=== PATIENT | male | born 1945 | race Two or more races ===

== ENCOUNTER 2016-08-12 10:20 | Outpatient (CLI) | payer MEDICARE, BC | END 2016-08-12 23:59 | disposition home or self-care (01) | LOC: WOU 10:20 | PROVIDERS: ATTEND Podiatrist Foot & Ankle Surgery | DX: E11.621 Type 2 diabetes mellitus with foot ulcer (principal); E11.622 Type 2 diabetes mellitus with other skin ulcer; E11.42 Type 2 diabetes mellitus with diabetic polyneuropathy; L97.524 Non-pressure chronic ulcer of other part of left foot with necrosis of bone; L97.324 Non-pressure chronic ulcer of left ankle with necrosis of bone; L97.313 Non-pressure chronic ulcer of right ankle with necrosis of muscle; L97.413 Non-pressure chronic ulcer of right heel and midfoot with necrosis of muscle; T87.81 Dehiscence of amputation stump; Z89.411 Acquired absence of right great toe; E11.22 Type 2 diabetes mellitus with diabetic chronic kidney disease; I12.0 Hypertensive chronic kidney disease with stage 5 chronic kidney disease or end stage renal disease; N18.6 End stage renal disease; Z99.2 Dependence on renal dialysis; I25.10 Atherosclerotic heart disease of native coronary artery without angina pectoris; Z95.1 Presence of aortocoronary bypass graft; E11.52 Type 2 diabetes mellitus with diabetic peripheral angiopathy with gangrene | CPT/HCPCS: 11043; 11044; 11046; 73610 ×2; 73630; 87070; 87075; A6402 ==

== ENCOUNTER 2016-08-17 09:05 | Outpatient (CLI) | payer MEDICARE, BC | END 2016-08-17 23:59 | disposition home or self-care (01) | LOC: WOU 09:05 | PROVIDERS: ATTEND Surgery Vascular Surgery | DX: I70.245 Atherosclerosis of native arteries of left leg with ulceration of other part of foot (principal); L97.324 Non-pressure chronic ulcer of left ankle with necrosis of bone; I70.234 Atherosclerosis of native arteries of right leg with ulceration of heel and midfoot; L97.413 Non-pressure chronic ulcer of right heel and midfoot with necrosis of muscle; L97.524 Non-pressure chronic ulcer of other part of left foot with necrosis of bone; E11.621 Type 2 diabetes mellitus with foot ulcer; E11.622 Type 2 diabetes mellitus with other skin ulcer; E11.42 Type 2 diabetes mellitus with diabetic polyneuropathy; E11.51 Type 2 diabetes mellitus with diabetic peripheral angiopathy without gangrene; E11.22 Type 2 diabetes mellitus with diabetic chronic kidney disease; N18.6 End stage renal disease; Z99.2 Dependence on renal dialysis; Z88.6 Allergy status to analgesic agent; Z88.1 Allergy status to other antibiotic agents; Z88.0 Allergy status to penicillin; I70.233 Atherosclerosis of native arteries of right leg with ulceration of ankle | CPT/HCPCS: 93970-TC; A6402; G0463 ==

== ENCOUNTER 2016-08-17 13:40 | Outpatient (CLI) | payer MEDICARE, BC | END 2016-08-17 23:59 | disposition home or self-care (01) | LOC: VASLAB 13:40 | PROVIDERS: ATTEND Surgery Vascular Surgery | DX: Z75.3 Unavailability and inaccessibility of health-care facilities (principal) | CPT/HCPCS: A6402; G0463 ==

== ENCOUNTER 2016-08-23 09:37 | Outpatient (CLI) | payer MEDICARE, BC ==
[2016-08-24] MEDS ORDERED: SEVE0.8P PO (13:23)
[2016-08-24] MEDS ORDERED: ZOLP10TA2 PO (13:23)
[2016-08-24] MEDS ORDERED: ALPR0.25 PO (13:23)
[2016-08-24] MEDS ORDERED: AMIO200T2 PO (13:23)
[2016-08-24] MEDS ORDERED: FLUO20CA36 PO (13:23)
[2016-08-29] MEDS ORDERED: VANC1PLA9 IV (13:00)
== END 2016-08-23 23:59 | disposition home or self-care (01) ==
LOC: WOU 09:37
PROVIDERS: ATTEND Podiatrist Foot & Ankle Surgery
DX: E11.621 Type 2 diabetes mellitus with foot ulcer (principal); E11.622 Type 2 diabetes mellitus with other skin ulcer; L97.313 Non-pressure chronic ulcer of right ankle with necrosis of muscle; E11.42 Type 2 diabetes mellitus with diabetic polyneuropathy; E11.51 Type 2 diabetes mellitus with diabetic peripheral angiopathy without gangrene; I70.245 Atherosclerosis of native arteries of left leg with ulceration of other part of foot; I70.243 Atherosclerosis of native arteries of left leg with ulceration of ankle; L97.524 Non-pressure chronic ulcer of other part of left foot with necrosis of bone; I25.10 Atherosclerotic heart disease of native coronary artery without angina pectoris; Z95.1 Presence of aortocoronary bypass graft; Z89.412 Acquired absence of left great toe; E11.22 Type 2 diabetes mellitus with diabetic chronic kidney disease; I12.0 Hypertensive chronic kidney disease with stage 5 chronic kidney disease or end stage renal disease; N18.6 End stage renal disease; Z99.2 Dependence on renal dialysis; Z79.899 Other long term (current) drug therapy; Z88.6 Allergy status to analgesic agent; Z88.1 Allergy status to other antibiotic agents; Z88.0 Allergy status to penicillin; Z88.2 Allergy status to sulfonamides
CPT/HCPCS: 11043; 11044; 11046; A6402 ×2

== ENCOUNTER 2016-08-24 11:38 | Inpatient (IN) | payer MEDICARE, BC ==
[~2016-08-24] VITALS: Ht 165.1 cm; Wt 70.8 kg
--- NOTE | 2016-08-24 12:10 | NUR ---
BIB SELF, CC: REFERRED BY DR. DOWELL FOR SURGICAL PROCEDURE. WITH DRESSINGS ON BLE. VSS. AAOX3. SEEN BY MD FOR EVAL. SAFETY AND COMFORT MEASURES PROVIDED. WILL MONITOR.
--- NOTE | 2016-08-24 12:40 | NUR ---
IV ACCESS STARTED, BLOOD DRAWN FOR LABS.
--- NOTE | 2016-08-24 12:49 | NUR ---
MANUELA PAGED, HARMEET LIU BAIL ATTACHER
--- NOTE | 2016-08-24 12:51 | NUR ---
CALLED NURSING SUP. FOR MS BED
[2016-08-24 13:09] LABS: CALCIUM, SERUM 9.4 mg/dL (8.5-10.1); CREATININE 4.7 mg/dL (0.6-1.3); POTASSIUM 4.1 mmol/L (3.5-5.1)
--- NOTE | 2016-08-24 13:13 | NUR ---
[facility] REPAGED
[2016-08-24 13:15] LABS: ALBUMIN 3.1 g/dL (3.4-5.0); BILIRUBIN,TOTAL 0.8 mg/dL (0.2-1.0); TOTAL PROTEIN, SERUM 7.1 g/dL (6.4-8.2)
[2016-08-24] MEDS ORDERED: SEVE0.8P PO (13:23)
[2016-08-24] MEDS ORDERED: AMIO200T2 PO (13:23)
[2016-08-24] MEDS ORDERED: ZOLP10TA2 PO (13:23)
[2016-08-24] MEDS ORDERED: FLUO20CA36 PO (13:23)
[2016-08-24] MEDS ORDERED: ALPR0.25 PO (13:23)
--- NOTE | 2016-08-24 13:44 | NUR ---
TEXTED DR. RUIZ FOR MRI APPROVAL.
--- NOTE | 2016-08-24 14:35 | NUR ---
REPORT GIVEN TO ANDRE LOGAN FOR MS ROOM 312-1.
[2016-08-24 14:38] LABS: HEMATOCRIT 42 % (39-51); HEMOGLOBIN 13.3 g/dL (13.5-17.5); LYMPHOCYTES % (AUTO) 4.1 % (20.0-44.0); MEAN CORPUSCULAR HEMOGLOBIN 28 PG (26.0-33.0); MEAN CORPUSCULAR HGB CONC 32 g/dl (31.0-36.0); MEAN CORPUSCULAR VOLUME 88 fL (80-96); NEUTROPHILS % (AUTO) 83.6 % (43.0-81.0); PLATELET COUNT (AUTO) 107 /CMM (150-450); RED BLOOD CELL COUNT(AUTO) 4.82 MIL/uL (4.5-6.0); WHITE BLOOD COUNT (AUTO) 7.6 K/uL (4.3-11.0)
[2016-08-24 14:39] LABS: BASOPHILS # (AUTO) 0.1 /CMM (0.0-0.2); BASOPHILS % (AUTO) 1.9 % (0.0-2.0); EOSINOPHILS # (AUTO) 0.2 /CMM (0.0-0.7); LYMPHOCYTES # (AUTO) 0.3 /CMM (0.8-4.8); MONOCYTES # (AUTO) 0.6 /CMM (0.1-1.30); MONOCYTES % (AUTO) 7.4 % (2.0-12.0); NEUTROPHILS # (AUTO) 6.4 /CMM (1.8-8.9)
[2016-08-24 15:30] VITALS: BP 105/69
--- NOTE | 2016-08-24 15:30 | NUR ---
RN NOTES PATIENT RECEIVED FROM ER ARRIVED VIA WHEELCHAIR, AWAKE ALERT AND VERBALLY RESPONSIVE, ABLE TO MAKE NEEDS KNOWN. RESPIRATIONS EVEN AND UNLABORED, REPORT PAIN LEVEL OF 3/10 TOLERABLE LEVEL, WILL CONTINUE TO MONITOR. DR. LIU AWARE OF PT'S ARRIVAL WILL CONTINUE ALL ADMISSION ORDERS. PT ORIENTED TO ROOM AND UNIT, CALL LIGHT PLACED WITHIN REACH, SIDE RAILS UP X2 WILL CONTINUE TO MONITOR
[2016-08-24] MEDS ORDERED: IV NS 0.9% 1,000 ML IV PRN (15:51)
[2016-08-24 16:00] VITALS: BP 105/69
[2016-08-24] MEDS ORDERED: ACETAMINOPHEN 325 MG TABLET PO PRN (16:00)
[2016-08-24] MEDS ORDERED: ALPRAZOLAM 0.5 MG TABLET PO PRN (16:00)
[2016-08-24] MEDS ORDERED: ZOLPIDEM TARTRATE 10 MG TABLET PO PRN (16:00)
[2016-08-24] MEDS ORDERED: ALPRAZOLAM 0.5 MG TABLET PO ONE (16:00)
[2016-08-24] MEDS ORDERED: Z GUARD REMEDY 2 OZ OINT TP PRN (16:00)
[2016-08-24] MEDS ORDERED: ONDANSETRON HCL/PF 4 MG/2 ML VIAL IVP PRN (16:00)
--- NOTE | 2016-08-24 17:03 | NUR ---
PATEINT HAS PROSTHETIC AORTIC VALVULAR IMPLANT NOT SURE IF IT IS MRI COMPATIBLE ,NURSE JONH IS AWARE.
[2016-08-24] MEDS: SEVELAMER CARBONATE 0.8 GM POWD.PACK PO SCH (17:14)
[2016-08-24] MEDS ORDERED: FEE PK DOSING 1 MIN EA MC ONE (17:46)
[2016-08-24] MEDS ORDERED: VANCOMYCIN 500 MG in IV D5W 100 ML IV PRN (18:00)
[2016-08-24] MEDS: CADEXOMER IODINE 40 GM TUBE TP SCH (18:00)
[2016-08-24] MEDS ORDERED: VANCOMYCIN 1 GM in IV D5W 250 ML IV ONE (18:00)
[2016-08-24] MEDS ORDERED: SECONDARY IV SET 1 EA INFUS.SET MC ONE (18:49)
[2016-08-24] MEDS ORDERED: IV SET PRIMARY PUMP SET 1 EA INFUS.SET MC ONE (18:49)
[2016-08-24] MEDS ORDERED: IV NS 0.9% 250 ML IV ONE (18:49)
--- NOTE | 2016-08-24 19:37 | NUR ---
RN NOTES PT AWAKE ALERT AND VERBALLY RESPONSIVE, ABLE TO MAKE NEEDS KNOWN. RESPIRATIONS EVEN AND UNLABORED, REPORT PAIN LEVEL OF 3/10 TOLERABLE LEVEL, PT REFUSED BODY CHECK AND PICTURES OF WOUND X3 NURSING EDUCATION REINFORCED, WANTS IT TO BE CHANGED LATER, WORKING FOREMAN RN AWARE. PT ORIENTED TO ROOM AND UNIT, CALL LIGHT PLACED WITHIN REACH, SIDE RAILS UP X2, ENDORSED TO NEXT SHIFT FOR CONTINUITY OF CARE, WORKING FOREMAN RN WILL ADMINISTER IODOSORB.
--- NOTE | 2016-08-24 19:44 | NUR ---
RN NOTES PATIENT IS AWAKE ALERT AND VERBALLY RESPONSIVE IN THE WHEELCHAIR, ABLE TO MAKE NEEDS KNOWN. RESPIRATIONS EVEN AND UNLABORED.NO COMPLAINTS OF PAIN AT THIS TIME. PER DR. BABCOCK, WILL TAKE PICTURES OF WOUNDS AND DRESS PER ORDERS AND GET CONSENT FORMS SIGNED FOR DEBRIDEMENT. PT ORIENTED TO ROOM AND UNIT, CALL LIGHT PLACED WITHIN REACH, SIDE RAILS UP X2. WILL CONTINUE TO MONITOR
[2016-08-24 20:00] VITALS: BP 106/53
--- NOTE | 2016-08-24 22:00 | NUR ---
CONSENT CONSENT FOR BILATERAL WOUND DEBRIDEMENT WAS OBTAINED AND FILED IN THE CHART.
--- NOTE | 2016-08-24 23:00 | NUR ---
WOUND CARE PICTURES OF WOUNDS ON BOTH LOWER EXTREMITIES WERE TAKEN AND PUT IN CHART. BOTH LOWER EXTREMITY WOUNDS WERE CLEANED, IODOSORB WAS APPLIED, MEPILEX AND KERLIX WERE USED TO COVER WOUNDS. WILL CONTINUE TO MONITOR
[2016-08-24] MEDS: HYDROCODONE/APAP 10/325MG 1 EA TABLET PO PRN (23:14)
[2016-08-25] MEDS: ALPRAZOLAM 0.25 MG TABLET PO PRN ×2 (04:29→12:43)
--- NOTE | 2016-08-25 06:18 | NUR ---
MS RN CLOSING NOTES PT AWAKE ALERT AND VERBALLY RESPONSIVE, ABLE TO MAKE NEEDS KNOWN. WOUND CARE, PICTURES, AND CONSENT WERE COMPLETED. PT ORIENTED TO ROOM AND UNIT, CALL LIGHT PLACED WITHIN REACH, SIDE RAILS UP X2. WILL ENDORSE TO DAY SHIFT TO FOLLOW UP WITH NEPHRO IN REGARDS TO HD.
[2016-08-25 07:28] LABS: BASOPHILS # (AUTO) 0.1 /CMM (0.0-0.2); BASOPHILS % (AUTO) 0.7 % (0.0-2.0); EOSINOPHILS # (AUTO) 0.7 /CMM (0.0-0.7); HEMATOCRIT 42 % (39-51); HEMOGLOBIN 13.6 g/dL (13.5-17.5); LYMPHOCYTES # (AUTO) 0.4 /CMM (0.8-4.8); LYMPHOCYTES % (AUTO) 5.4 % (20.0-44.0); MEAN CORPUSCULAR HEMOGLOBIN 28 PG (26.0-33.0); MEAN CORPUSCULAR HGB CONC 32 g/dl (31.0-36.0); MEAN CORPUSCULAR VOLUME 87 fL (80-96); MONOCYTES # (AUTO) 0.5 /CMM (0.1-1.30); MONOCYTES % (AUTO) 6.9 % (2.0-12.0); PLATELET COUNT (AUTO) 132 /CMM (150-450); RDW COEFFICIENT OF VARIATION 17.5 (11.5-15.0); RED BLOOD CELL COUNT(AUTO) 4.86 MIL/uL (4.5-6.0); WHITE BLOOD COUNT (AUTO) 7.6 K/uL (4.3-11.0)
[2016-08-25 07:35] LABS: ALBUMIN 2.9 g/dL (3.4-5.0); BILIRUBIN,TOTAL 0.8 mg/dL (0.2-1.0); CALCIUM, SERUM 9.7 mg/dL (8.5-10.1); CREATININE 5.5 mg/dL (0.6-1.3); MAGNESIUM 2.2 mg/dL (1.8-2.4); PHOSPHORUS 7.4 mg/dL (2.5-4.9); POTASSIUM 4.5 mmol/L (3.5-5.1); TOTAL PROTEIN, SERUM 6.8 g/dL (6.4-8.2)
--- NOTE | 2016-08-25 07:40 | NUR ---
RECEIVED PT. ALERT AND ORIENTED X4.
[2016-08-25 08:00] VITALS: BP 105/64
[2016-08-25 08:47] LABS: THYROID STIMULATING HORMONE 0.73 uIU/mL (0.358-3.74)
[2016-08-25] MEDS: PANTOPRAZOLE 40 MG TABLET.DR PO SCH (09:35)
[2016-08-25] MEDS: HYDROMORPHONE 1 MG/1 ML DISP.SYRIN IV PRN ×2 (09:35→20:34)
[2016-08-25] MEDS: AMIODARONE HCL 200 MG TABLET PO SCH (09:35)
[2016-08-25] MEDS: SEVELAMER CARBONATE 0.8 GM POWD.PACK PO SCH ×3 (09:35→19:09)
[2016-08-25] MEDS: FLUOXETINE HCL 20 MG CAPSULE PO SCH (09:36)
[2016-08-25] MEDS: CADEXOMER IODINE 40 GM TUBE TP SCH (09:36)
--- NOTE | 2016-08-25 11:30 | NUR ---
HARMEET LIU IN TO SEE PT.PT. REFUSING TO ANSWER MRI CHECKLIST QUESTIONS.WD. CARE TO AG. LOWER LEGS.
--- NOTE | 2016-08-25 14:00 | NUR ---
MED X 1 WITH DILAUDID INJ. FOR LT. EYE PAIN.
[2016-08-25 15:50] VITALS: BP 119/73
[2016-08-25] MEDS ORDERED: VANCOMYCIN 1 GM in IV D5W 250 ML IV ONE (16:00)
--- NOTE | 2016-08-25 16:00 | NUR ---
HAD DIALYSIS TODAY,FIRST HOOKER OFF GOT IN TO DISAGREEMENT WITH PT. AND LEFT. NEW HOOKER OFF ASSIGNED.
--- NOTE | 2016-08-25 18:45 | NUR ---
VANCO 1 GM GIVEN VANCO LEVEL THIS AM 13.0.
--- NOTE | 2016-08-25 19:30 | NUR ---
RN NOTES Receievd patient in bed, awake and alert, verbally responsive and able to make needs known. No apparent distress observed. Will continue to monitor.
--- NOTE | 2016-08-25 19:30 | NUR ---
RN NOTES Received patient in chair, awake and alert, no apparent distress. Patient eating his dinner, no c/o pain or discomfort at this time. at bedside. Will continue to monitor.
[2016-08-25 20:00] VITALS: BP 118/57
--- NOTE | 2016-08-25 20:44 | NUR ---
RN NOTES COMPLAINED OF BILATERAL FOOT PAIN- DILAUDID 1MG IV GIVEN ORDERED, V/S STABLE
[2016-08-26] VITALS (9 sets, daily range): BP systolic 93–118; BP diastolic 54–68
[2016-08-26] MEDS: ALPRAZOLAM 0.25 MG TABLET PO PRN ×2 (00:10→19:43)
--- NOTE | 2016-08-26 05:59 | NUR ---
RN CLOSING NOTES Patient sleeping comfortable, easily awakens with verbal and tactile stimuli. Able to respond when asked. patient aware of the procedure he will have later, verbalized understanding. Consent signed. Will continue to monitor.
[2016-08-26 06:39] LABS: INR 1.11 (0.87-1.13); PROTHROMBIN TIME 11.9 SECS (9.5-12.7)
[2016-08-26 07:05] LABS: CALCIUM, SERUM 9.6 mg/dL (8.5-10.1); CREATININE 4.8 mg/dL (0.6-1.3); POTASSIUM 4.7 mmol/L (3.5-5.1)
[2016-08-26] MEDS: PANTOPRAZOLE 40 MG TABLET.DR PO SCH (07:30)
--- NOTE | 2016-08-26 07:30 | NUR ---
RN MS NOTES PT AWAKE, ALERT AND ORIENTED, SITTING IN BED, DENIES PAIN, BREATHING PATTERN NORMAL, CALL LIGHT WITHIN REACH, PT FOR WOUND DEBRIDEMENT TODAY, PT INFORMED, PLAN OF CARE DISCUSSED, VERBALIZED UNDERSTANDING.
[2016-08-26] MEDS: SEVELAMER CARBONATE 0.8 GM POWD.PACK PO SCH ×3 (08:00→17:39)
[2016-08-26] MEDS: AMIODARONE HCL 200 MG TABLET PO SCH (09:00)
[2016-08-26] MEDS: FLUOXETINE HCL 20 MG CAPSULE PO SCH (09:00)
--- NOTE | 2016-08-26 12:40 | NUR ---
RN MS NOTES PT IN BED, AWAKE, ALERT AND ORIENTED, NO COMPPLAINT OF PAIN OR ANY DISCOMFORT, BREATHING PATTERN NORMAL, AWAITING WOUND DEBRIDEMENT, CALL LIGHT WITHIN REACH, NEEDS ATTENDED.
--- NOTE | 2016-08-26 13:05 | NUR ---
RN MS NOTES VITALS TAKEN AND RECORDED, NO COMPLAINT OF PAIN, RESPIRATIONS NORMAL, PICKED UP BY O.R. STAFF FOR SURGERY, IN STABLE CONDITION, ACCOMPANIED BY .
[2016-08-26] MEDS ORDERED: BUPIVACAINE 0.5 % PF 150 MG/30 ML VIAL ONE (13:54)
[2016-08-26] MEDS ORDERED: BUPIVACAINE MPF 0.5% W/EPI INJ 30 ML VIAL ONE (13:54)
[2016-08-26] MEDS ORDERED: FENTANYL PF 100MCG/2ML AMPUL ONE (13:58)
[2016-08-26] MEDS ORDERED: MIDAZOLAM HCL 2 MG/2ML VIAL ONE (13:59)
[2016-08-26] MEDS ORDERED: CLINDAMYCIN 900 MG/6 ML VIAL ONE (14:00)
--- NOTE | 2016-08-26 15:25 | NUR ---
RN MS NOTES PT BACK FROM SURGERY, AWAKE, ALERT, NO COMPLAINT OF PAIN, NOT IN DISTRESS, DRESSINGS NOTED AT BOTH LOWER EXTREMITIES, NO BLEEDING NOTED, VITAL SIGNS TAKEN AND RECORDED, POST OP ORDERS RECEIVED, NOTED AND CARRIED OUT, MONITORED VITAL SIGNS CLOSELY.
[2016-08-26] MEDS: CADEXOMER IODINE 40 GM TUBE TP SCH (15:56)
--- NOTE | 2016-08-26 18:30 | NUR ---
RN MS NOTES PT IN BED, AWAKE, ALERT AND ORIENTED, ABLE TO EAT DINNER, VITAL SIGNS STABLE, PM MEDS GIVEN ORDERED, ALL NEEDS ATTENDED.
--- NOTE | 2016-08-26 19:05 | NUR ---
RN NOTE RECEIVED REPORT. PT AAOX4, APPEARS ANXIOUS. NO C/O ANY PAIN OR DISCOMFORT AT THIS TIME. ON NC 2L. S/P DEBRIDEMENT - LEFT FOOT DRESSING INTACT WITH SMALL AMOUNT OF BLEEDING NOTED. WILL MONITOR. IV INTACT AND PATENT, CALL LIGHT IN REACH.
--- NOTE | 2016-08-27 04:30 | NUR ---
RN NOTE PO PRN DEENA REQUESTED AND ACCEPTED FOR PAIN IN L HEEL. WILL CHARLIE FOR EFFECTIVENESS.
[2016-08-27] MEDS: HYDROCODONE/APAP 10/325MG 1 EA TABLET PO PRN ×2 (04:33→14:21)
--- NOTE | 2016-08-27 06:52 | NUR ---
RN NOTE PT RESTING COMFORTABLY IN BED. PRN EFFECTIVE. NO C/O ANY PAIN OR DISCOMFORT AT THIS TIME. BREATHING NON-LABORED AND EVEN. DRESSINGS I/C/D. IV INTACT AND PATENT. CALL LIGHT IN REACH. WILL F/U WITH DAY SHIFT FOR TIGRE.
[2016-08-27 07:28] LABS: EOSINOPHILS # (AUTO) 0.5 /CMM (0.0-0.7); EOSINOPHILS % (AUTO) 7.5 % (0.0-6.0); HEMATOCRIT 44 % (39-51); HEMOGLOBIN 13.9 g/dL (13.5-17.5); LYMPHOCYTES # (AUTO) 0.4 /CMM (0.8-4.8); LYMPHOCYTES % (AUTO) 5.5 % (20.0-44.0); MEAN CORPUSCULAR HEMOGLOBIN 28 PG (26.0-33.0); MEAN CORPUSCULAR HGB CONC 32 g/dl (31.0-36.0); MEAN CORPUSCULAR VOLUME 88 fL (80-96); MONOCYTES # (AUTO) 0.4 /CMM (0.1-1.30); MONOCYTES % (AUTO) 5.7 % (2.0-12.0); NEUTROPHILS # (AUTO) 5.7 /CMM (1.8-8.9); NEUTROPHILS % (AUTO) 81.3 % (43.0-81.0); PLATELET COUNT (AUTO) 129 /CMM (150-450); RED BLOOD CELL COUNT(AUTO) 4.95 MIL/uL (4.5-6.0)
--- NOTE | 2016-08-27 07:33 | NUR ---
RN MS NOTES PT IN BED, ASLEEP, RESPIRATIONS NORMAL, NO SIGN OF PAIN OR ANY DISCOMFORT, EASILY AROUSABLE, DRESSINGS TO BLE INTACT AND DRY, CALL LIGHT WITHIN REACH.
[2016-08-27 08:00] VITALS: BP 100/57
[2016-08-27 08:17] LABS: CALCIUM, SERUM 9.4 mg/dL (8.5-10.1); CREATININE 5.9 mg/dL (0.6-1.3); PHOSPHORUS 7.8 mg/dL (2.5-4.9); POTASSIUM 5.3 mmol/L (3.5-5.1)
[2016-08-27] MEDS: SEVELAMER CARBONATE 0.8 GM POWD.PACK PO SCH ×3 (08:22→16:45)
[2016-08-27] MEDS: FLUOXETINE HCL 20 MG CAPSULE PO SCH (08:23)
[2016-08-27] MEDS: PANTOPRAZOLE 40 MG TABLET.DR PO SCH (08:23)
[2016-08-27] MEDS: CADEXOMER IODINE 40 GM TUBE TP SCH (08:33)
[2016-08-27] MEDS: DAKINS HALF STRENGTH (0.25%) 480 ML BOTTLE TOP SCH ×2 (08:33→16:52)
[2016-08-27] MEDS: AMIODARONE HCL 200 MG TABLET PO SCH (09:00)
[2016-08-27] MEDS: ALPRAZOLAM 0.25 MG TABLET PO PRN ×2 (09:52→22:46)
--- NOTE | 2016-08-27 12:57 | NUR ---
RN MS NOTES PT AWAKE, SITTING IN BED, NO COMPLAINT OF PAIN, RESPIRATIONS NORMAL, COMPLETED DIALYSIS, TOLERATED WELL, NEEDS ATTENDED.
[2016-08-27 16:00] VITALS: BP 100/54
[2016-08-27] MEDS ORDERED: VANCOMYCIN 1 GM in IV D5W 250 ML IV ONE (16:00)
[2016-08-27] MEDS: DAKINS QUARTER STRENGTH (0.125%) 480 ML BOTTLE TOP SCH (16:52)
--- NOTE | 2016-08-27 18:30 | NUR ---
RN MS NOTES PT IN BED, AWAKE, ALERT AND ORIENTED, NO COMPLAINT OF PAIN AT THIS TIME, BREATHING PATTERN NORMAL, TREATMENT AND DRESSING CHANGE DONE TO WOUNDS AT RIGHT HEEL AND LEFT 2ND TOE, TOLERATED PROCEDURE WELL, PM MEDS GIVEN, ALL NEEDS ATTENDED.
--- NOTE | 2016-08-27 19:05 | NUR ---
RN NOTE RECEIVED REPORT. PT AAOX4, NO C/O ANY PAIN OR DISCOMFORT AT THIS TIME. BREATHING NON-LABORED AND EVEN. IV INTACT AND PATENT. DRESSINGS I/C/D.FAMILY AT BEDSIDE. CALL LIGHT IN REACH, WILL MONITOR.
[2016-08-27 20:00] VITALS: BP 97/51
--- NOTE | 2016-08-28 01:23 | NUR ---
RN NOTE PT RESTING COMFORTABLY IN BED WITH EYES CLOSED. NO DISTRESS NOTED. WILL MONITOR.
[2016-08-28] MEDS ORDERED: VANCOMYCIN 500 MG in IV D5W 100 ML IV PRN (06:00)
[2016-08-28 06:44] LABS: BASOPHILS # (AUTO) 0.1 /CMM (0.0-0.2); BASOPHILS % (AUTO) 0.9 % (0.0-2.0); EOSINOPHILS # (AUTO) 0.4 /CMM (0.0-0.7); EOSINOPHILS % (AUTO) 7.3 % (0.0-6.0); HEMATOCRIT 42 % (39-51); HEMOGLOBIN 13.2 g/dL (13.5-17.5); LYMPHOCYTES # (AUTO) 0.4 /CMM (0.8-4.8); LYMPHOCYTES % (AUTO) 6.5 % (20.0-44.0); MEAN CORPUSCULAR HEMOGLOBIN 28 PG (26.0-33.0); MEAN CORPUSCULAR HGB CONC 32 g/dl (31.0-36.0); MEAN CORPUSCULAR VOLUME 87 fL (80-96); MONOCYTES # (AUTO) 0.4 /CMM (0.1-1.30); NEUTROPHILS # (AUTO) 4.7 /CMM (1.8-8.9); NEUTROPHILS % (AUTO) 78.3 % (43.0-81.0); PLATELET COUNT (AUTO) 110 /CMM (150-450); RDW COEFFICIENT OF VARIATION 16.8 (11.5-15.0); RED BLOOD CELL COUNT(AUTO) 4.76 MIL/uL (4.5-6.0); WHITE BLOOD COUNT (AUTO) 6.1 K/uL (4.3-11.0)
--- NOTE | 2016-08-28 06:56 | NUR ---
RN NOTE NO SIGNIFICANT CHANGES AT NIGHT. PT RESTING COMFORTABLY, NO DISTRESS NOTED AT THIS TIME. BREATHING NON-LABORED AND EVEN. DRESSING I/C/D. IV INTACT AND PATENT. CALL LIGHT IN REACH WILL CONT TO MONITOR.
[2016-08-28 07:06] LABS: CALCIUM, SERUM 9.3 mg/dL (8.5-10.1); CREATININE 5.3 mg/dL (0.6-1.3); MAGNESIUM 1.9 mg/dL (1.8-2.4); PHOSPHORUS 6.4 mg/dL (2.5-4.9)
--- NOTE | 2016-08-28 07:44 | NUR ---
RN MS NOTES RECEIVED PATIENT IN BED, IN NO APPARENT DISTRESS, DENIES PAIN, DENIES SOB. ILEOSTOMY PRESENT, NO S/S OF INFECTION NOTED AT ST[place] SITE.DRESSINGS ON RIGHT FOOT AND LEFT FOOT CLEAR AND INTACT.RIGHT AV FISTULA PRESENT, IV LINE ON LEFT AC PATENT. ALL NEEDS MET, CALL LIGHT WITHIN REACH.
[2016-08-28 08:00] VITALS: BP 92/42
[2016-08-28] MEDS: SEVELAMER CARBONATE 0.8 GM POWD.PACK PO SCH ×3 (08:56→18:04)
[2016-08-28] MEDS: PANTOPRAZOLE 40 MG TABLET.DR PO SCH (08:56)
[2016-08-28] MEDS: FLUOXETINE HCL 20 MG CAPSULE PO SCH (09:00)
[2016-08-28] MEDS: AMIODARONE HCL 200 MG TABLET PO SCH (09:00)
[2016-08-28] MEDS: DAKINS QUARTER STRENGTH (0.125%) 480 ML BOTTLE TOP SCH (09:05)
[2016-08-28 16:00] VITALS: BP 117/63
[2016-08-28] MEDS: ALPRAZOLAM 0.25 MG TABLET PO PRN (16:51)
--- NOTE | 2016-08-28 19:08 | NUR ---
RN MS NOTES PATIENT IN BED,A/OX4 IN NO APPARENT DISTRESS.ALL DUE MEDS GIVEN ALL NEEDS MET. IV LINE ON LEFT AC PATENT, RIGHT AV FISTULA PATENT. ALL NEEDS MET, CALL LIGHT WITHIN REACH.
--- NOTE | 2016-08-28 19:30 | NUR ---
RN NOTES RECEIVED PT SLEEPING BUT AROUSABLE, A/OX3, DENEIS PAIN AT THIS TIME, NO SOB, CALL LIGHT WITHIN REACH, SIDERAILS UPX2 CONTINUE TO MONITOR
[2016-08-28 20:00] VITALS: BP 105/56
[2016-08-28] MEDS: HYDROMORPHONE 1 MG/1 ML DISP.SYRIN IV PRN (22:10)
--- NOTE | 2016-08-28 22:15 | NUR ---
RN NOTES COMPLAINED OF BILATERAL FOOT PAIN- DILAUDID 1MG IV GIVEN ORDERED, V/S STABLE
--- NOTE | 2016-08-28 22:30 | NUR ---
RN NOTES SPOKE TO THE PT. AND EXPLAINED TO HIM THAT HE'S IV LINE IS NOT GOING TO LAST, BUT PT. REFUSED TO HAVE ANOTHER IV LINE
[2016-08-29] MEDS: HYDROCODONE/APAP 10/325MG 1 EA TABLET PO PRN ×3 (03:20→17:39)
--- NOTE | 2016-08-29 03:23 | NUR ---
RN NOTES COMPLAINED OF RIGHT HEEL PAIN- NORCO 10/325 MG PO GIVEN ORDERED, V/S STABLE
[2016-08-29 06:37] LABS: BASOPHILS % (AUTO) 0.7 % (0.0-2.0); EOSINOPHILS # (AUTO) 0.4 /CMM (0.0-0.7); EOSINOPHILS % (AUTO) 6.3 % (0.0-6.0); HEMATOCRIT 42 % (39-51); HEMOGLOBIN 13.4 g/dL (13.5-17.5); LYMPHOCYTES # (AUTO) 0.4 /CMM (0.8-4.8); LYMPHOCYTES % (AUTO) 5.7 % (20.0-44.0); MEAN CORPUSCULAR HEMOGLOBIN 28 PG (26.0-33.0); MEAN CORPUSCULAR HGB CONC 32 g/dl (31.0-36.0); MEAN CORPUSCULAR VOLUME 88 fL (80-96); MONOCYTES # (AUTO) 0.4 /CMM (0.1-1.30); MONOCYTES % (AUTO) 6.6 % (2.0-12.0); NEUTROPHILS # (AUTO) 5.5 /CMM (1.8-8.9); NEUTROPHILS % (AUTO) 80.7 % (43.0-81.0); PLATELET COUNT (AUTO) 126 /CMM (150-450); RDW COEFFICIENT OF VARIATION 16.5 (11.5-15.0); RED BLOOD CELL COUNT(AUTO) 4.75 MIL/uL (4.5-6.0); WHITE BLOOD COUNT (AUTO) 6.8 K/uL (4.3-11.0)
--- NOTE | 2016-08-29 06:47 | NUR ---
RN NOTES SLEEPING BUT AROUSABLE, DENIES PAIN, NO SOB, PT. NEEDS ATTENDED. ENDORSED TO DAYSHIFT NURSE FOR CONTINUITY OF CARE
[2016-08-29 07:05] LABS: CALCIUM, SERUM 9.1 mg/dL (8.5-10.1); CREATININE 6.2 mg/dL (0.6-1.3); MAGNESIUM 1.9 mg/dL (1.8-2.4); PHOSPHORUS 7.3 mg/dL (2.5-4.9); POTASSIUM 5.1 mmol/L (3.5-5.1)
--- NOTE | 2016-08-29 07:36 | NUR ---
RN MS NOTES RECEIVED PATIENT IN BED, A/O X4, VERBALLY RESPONSIVE. NO APPARENT DISTRESS NOTED, DENIES PAIN, DENIES SOB. BILATERAL LOWER EXTREMITY DRESSINGS CLEAR AND INTACT. IV LINE ON LEFT AC PATENT, RIGHT AV FISTULA INTACT. ALL NEEDS MET, CALL LIGHT WITHIN REACH.
[2016-08-29 08:00] VITALS: BP 110/62
[2016-08-29] MEDS: FLUOXETINE HCL 20 MG CAPSULE PO SCH (08:59)
[2016-08-29] MEDS: PANTOPRAZOLE 40 MG TABLET.DR PO SCH (08:59)
[2016-08-29] MEDS: SEVELAMER CARBONATE 0.8 GM POWD.PACK PO SCH ×2 (08:59→12:59)
[2016-08-29] MEDS: AMIODARONE HCL 200 MG TABLET PO SCH (09:00)
[2016-08-29] MEDS: DAKINS HALF STRENGTH (0.25%) 480 ML BOTTLE TOP SCH (09:03)
[2016-08-29] MEDS: DAKINS QUARTER STRENGTH (0.125%) 480 ML BOTTLE TOP SCH (09:03)
[2016-08-29] MEDS ORDERED: VANC1PLA9 IV (13:00)
[2016-08-29 16:00] VITALS: BP 115/59
[2016-08-29] MEDS: ALPRAZOLAM 0.25 MG TABLET PO PRN (16:02)
--- NOTE | 2016-08-29 18:00 | NUR ---
RN MS CLOSING NOTES PATIENT LEFT IN STABLE CONDITION, IN NO APPARENT DISTRESS, DENIES SOB. PATIENT COMPLAINING OF PAIN ON RIGHT FOOT, NORCO GIVEN PRIOR TO DISCHARGE. ALL DUE MEDS GIVEN, ALL NEEDS MET, KEPT CLEAN AND DRY. PATIENT REFUSED TO TAKE PICTURES. HE STATED THAT CLOTHING PATTERNMAKER TOOK PICTURES WHEN SHE CHANGED THE DRESSING. IV LINE DISCONTINUED, ILEOSTOMY BAG EMPTIED AND CHANGED. DISCHARGE INSTRUCTIONS REVIEWED WITH PATIENT AND . THEY STATED UNDERSTANDING. FOLLOW UP APPOINTMENTS REVIEWED WITH THEM. PER SHE ALREADY HAS A LIST OF ALL HIS FUTURE APPOINTMENTS. HIS STATED THAT THEY HAVE THEIR OWN HOME HEALTH AND DID [facility]. WOUND TX ORDERS GIVEN TO PATIENT AND . DISCHARGE MEDICATIONS REVIEWED, VANCOMYCIN PRESCRIPTION GIVEN TO PATIENT AND INSTRUCTED TO GIVE IT TO THE DIALYSIS NURSE ON TUESDAY. PATIENT INSTRUCTED TO NOT PUT WEIGHT ON THE RIGHT LOWER EXTREMITY, HE STATED UNDERSTANDING. BELONGINGS LIST REVIEWED AND SIGNED, ALL BELONGINGS ACCOUNTED FOR.
== END 2016-08-29 17:58 | disposition home health service (06) | DRG 982 ==
LOC: ER 11:40 → MED 13:57
PROVIDERS: ADMIT Nurse Practitioner Acute Care; ATTEND Nurse Practitioner Acute Care
PROC: 5A1D60Z (ICD-10-PCS; 2016-08-24)
PROC: 0QBR0ZX Excision of Left Toe Phalanx, Open Approach, Diagnostic (ICD-10-PCS; 2016-08-26)
PROC: 0KBV0ZZ Excision of Right Foot Muscle, Open Approach (ICD-10-PCS; principal; 2016-08-26 14:27)
DX: E11.621 Type 2 diabetes mellitus with foot ulcer (principal); I12.0 Hypertensive chronic kidney disease with stage 5 chronic kidney disease or end stage renal disease; D69.3 Immune thrombocytopenic purpura; D68.59 Other primary thrombophilia; M86.9 Osteomyelitis, unspecified; E11.69 Type 2 diabetes mellitus with other specified complication; K21.9 Gastro-esophageal reflux disease without esophagitis; N18.6 End stage renal disease; Z95.1 Presence of aortocoronary bypass graft; Z99.2 Dependence on renal dialysis; F32.9 Major depressive disorder, single episode, unspecified; E11.22 Type 2 diabetes mellitus with diabetic chronic kidney disease; I25.10 Atherosclerotic heart disease of native coronary artery without angina pectoris; E78.5 Hyperlipidemia, unspecified; Z87.891 Personal history of nicotine dependence; L97.529 Non-pressure chronic ulcer of other part of left foot with unspecified severity; Z88.0 Allergy status to penicillin; Z88.2 Allergy status to sulfonamides; F41.9 Anxiety disorder, unspecified; Z95.2 Presence of prosthetic heart valve; N40.0 Benign prostatic hyperplasia without lower urinary tract symptoms; M19.90 Unspecified osteoarthritis, unspecified site; J44.9 Chronic obstructive pulmonary disease, unspecified; I73.9 Peripheral vascular disease, unspecified; I27.2 Other secondary pulmonary hypertension; I48.0 Paroxysmal atrial fibrillation; L97.519 Non-pressure chronic ulcer of other part of right foot with unspecified severity
CPT/HCPCS: 36415; 71010-TC; 80048-TC; 80053-TC; 80061-TC; 80202-TC; 83735-TC; 84100-TC; 84443-TC; 85025-TC; 85610-TC; 85730-TC; 87070-TC; 87081-TC; 87186-TC; 90935-TC; 93307-TC; 94799-TC; 97001-TC; A4606; A6209; A6402; A6403; J1170; J2250; J2370; J2704; J3010; J3370; J3490; J7050; J7060; Z7610

== ENCOUNTER 2016-09-06 10:39 | Outpatient (CLI) | payer MEDICARE, BC ==
[~2016-09-06 10:39] MED LIST: ALPR0.25 PO; AMIO200T2 PO; FLUO20CA36 PO; SEVE0.8P PO; VANC1PLA9 IV; ZOLP10TA2 PO
== END 2016-09-06 23:59 | disposition home health service (06) ==
LOC: WOU 10:39
PROVIDERS: ATTEND Podiatrist Foot & Ankle Surgery
DX: E11.621 Type 2 diabetes mellitus with foot ulcer (principal); L97.313 Non-pressure chronic ulcer of right ankle with necrosis of muscle; L97.524 Non-pressure chronic ulcer of other part of left foot with necrosis of bone; L97.324 Non-pressure chronic ulcer of left ankle with necrosis of bone; L97.413 Non-pressure chronic ulcer of right heel and midfoot with necrosis of muscle; E11.51 Type 2 diabetes mellitus with diabetic peripheral angiopathy without gangrene; E11.22 Type 2 diabetes mellitus with diabetic chronic kidney disease; I12.0 Hypertensive chronic kidney disease with stage 5 chronic kidney disease or end stage renal disease; N18.6 End stage renal disease; Z99.2 Dependence on renal dialysis; I87.2 Venous insufficiency (chronic) (peripheral); Z79.01 Long term (current) use of anticoagulants; I25.10 Atherosclerotic heart disease of native coronary artery without angina pectoris; Z95.1 Presence of aortocoronary bypass graft; E11.42 Type 2 diabetes mellitus with diabetic polyneuropathy; Z88.6 Allergy status to analgesic agent; Z88.0 Allergy status to penicillin; Z88.2 Allergy status to sulfonamides
CPT/HCPCS: 11043; 11044; 11730; A6402

== ENCOUNTER 2016-09-13 10:57 | Outpatient (CLI) | payer MEDICARE, BC | END 2016-09-13 23:59 | disposition home health service (06) | LOC: WOU 10:57 | PROVIDERS: ATTEND Podiatrist Foot & Ankle Surgery | DX: E11.621 Type 2 diabetes mellitus with foot ulcer (principal); L97.524 Non-pressure chronic ulcer of other part of left foot with necrosis of bone; L97.323 Non-pressure chronic ulcer of left ankle with necrosis of muscle; E11.622 Type 2 diabetes mellitus with other skin ulcer; L97.314 Non-pressure chronic ulcer of right ankle with necrosis of bone; E11.51 Type 2 diabetes mellitus with diabetic peripheral angiopathy without gangrene; E11.22 Type 2 diabetes mellitus with diabetic chronic kidney disease; I12.0 Hypertensive chronic kidney disease with stage 5 chronic kidney disease or end stage renal disease; N18.6 End stage renal disease; Z99.2 Dependence on renal dialysis; I25.10 Atherosclerotic heart disease of native coronary artery without angina pectoris; Z95.1 Presence of aortocoronary bypass graft; Z79.899 Other long term (current) drug therapy; Z89.412 Acquired absence of left great toe; E11.69 Type 2 diabetes mellitus with other specified complication; M86.271 Subacute osteomyelitis, right ankle and foot; M86.272 Subacute osteomyelitis, left ankle and foot; Z88.6 Allergy status to analgesic agent; Z88.0 Allergy status to penicillin | CPT/HCPCS: 11043; 11044; 11047; A6402 ==

== ENCOUNTER 2016-09-20 10:56 | Outpatient (CLI) | payer MEDICARE, BC ==
[2016-09-20 12:22] LABS: BASOPHILS % (AUTO) 0.4 % (0.0-2.0); EOSINOPHILS # (AUTO) 0.4 /CMM (0.0-0.7); EOSINOPHILS % (AUTO) 5.2 % (0.0-6.0); HEMATOCRIT 41 % (39-51); HEMOGLOBIN 13.1 g/dL (13.5-17.5); LYMPHOCYTES # (AUTO) 0.3 /CMM (0.8-4.8); LYMPHOCYTES % (AUTO) 3.8 % (20.0-44.0); MEAN CORPUSCULAR HEMOGLOBIN 27 PG (26.0-33.0); MEAN CORPUSCULAR HGB CONC 32 g/dl (31.0-36.0); MEAN CORPUSCULAR VOLUME 86 fL (80-96); MONOCYTES # (AUTO) 0.5 /CMM (0.1-1.30); MONOCYTES % (AUTO) 6.5 % (2.0-12.0); NEUTROPHILS # (AUTO) 6.8 /CMM (1.8-8.9); NEUTROPHILS % (AUTO) 84.1 % (43.0-81.0); PLATELET COUNT (AUTO) 168 /CMM (150-450); RDW COEFFICIENT OF VARIATION 16.6 (11.5-15.0); WHITE BLOOD COUNT (AUTO) 8.1 K/uL (4.3-11.0)
[2016-09-20 12:35] LABS: PREALBUMIN 16.4 MG/DL (18.0-35.7)
[2016-09-20 12:37] LABS: CALCIUM, SERUM 9.4 mg/dL (8.5-10.1)
[2016-09-20 12:46] LABS: POTASSIUM 6.7 mmol/L (3.5-5.1)
[2016-09-20 12:58] LABS: INR 1.11 (0.87-1.13)
== END 2016-09-20 23:59 | disposition home or self-care (01) ==
LOC: WOU 10:56
PROVIDERS: ATTEND Podiatrist Foot & Ankle Surgery
DX: E11.621 Type 2 diabetes mellitus with foot ulcer (principal); E11.622 Type 2 diabetes mellitus with other skin ulcer; E11.69 Type 2 diabetes mellitus with other specified complication; M86.271 Subacute osteomyelitis, right ankle and foot; M86.272 Subacute osteomyelitis, left ankle and foot; L97.314 Non-pressure chronic ulcer of right ankle with necrosis of bone; L97.323 Non-pressure chronic ulcer of left ankle with necrosis of muscle; E11.42 Type 2 diabetes mellitus with diabetic polyneuropathy; E11.22 Type 2 diabetes mellitus with diabetic chronic kidney disease; I12.0 Hypertensive chronic kidney disease with stage 5 chronic kidney disease or end stage renal disease; N18.6 End stage renal disease; Z99.2 Dependence on renal dialysis; Z79.01 Long term (current) use of anticoagulants; Z89.411 Acquired absence of right great toe; I25.10 Atherosclerotic heart disease of native coronary artery without angina pectoris; Z95.1 Presence of aortocoronary bypass graft; E78.5 Hyperlipidemia, unspecified; Z95.2 Presence of prosthetic heart valve
CPT/HCPCS: 11043; 11044; 36415; 80048-TC; 82040-TC; 84134-TC; 85025-TC; 85610-TC; 85730-TC; A6402; G0463

== ENCOUNTER 2016-09-27 10:57 | Outpatient (CLI) | payer MEDICARE, BC | END 2016-09-27 23:59 | disposition home health service (06) | LOC: WOU 10:57 | PROVIDERS: ATTEND Podiatrist Foot & Ankle Surgery | DX: E11.621 Type 2 diabetes mellitus with foot ulcer (principal); E11.622 Type 2 diabetes mellitus with other skin ulcer; E11.69 Type 2 diabetes mellitus with other specified complication; M86.271 Subacute osteomyelitis, right ankle and foot; M86.272 Subacute osteomyelitis, left ankle and foot; L97.314 Non-pressure chronic ulcer of right ankle with necrosis of bone; L97.323 Non-pressure chronic ulcer of left ankle with necrosis of muscle; E11.42 Type 2 diabetes mellitus with diabetic polyneuropathy; E11.22 Type 2 diabetes mellitus with diabetic chronic kidney disease; I12.0 Hypertensive chronic kidney disease with stage 5 chronic kidney disease or end stage renal disease; N18.6 End stage renal disease; Z99.2 Dependence on renal dialysis; Z79.01 Long term (current) use of anticoagulants; Z89.411 Acquired absence of right great toe; I25.10 Atherosclerotic heart disease of native coronary artery without angina pectoris; Z95.1 Presence of aortocoronary bypass graft; L97.524 Non-pressure chronic ulcer of other part of left foot with necrosis of bone; E11.51 Type 2 diabetes mellitus with diabetic peripheral angiopathy without gangrene | CPT/HCPCS: 11043; 11044; A6402 ==

== ENCOUNTER 2016-10-04 10:40 | Outpatient (CLI) | payer MEDICARE, BC | END 2016-10-04 23:59 | disposition home health service (06) | LOC: WOU 10:40 | PROVIDERS: ATTEND Podiatrist Foot & Ankle Surgery | DX: E11.621 Type 2 diabetes mellitus with foot ulcer (principal); E11.622 Type 2 diabetes mellitus with other skin ulcer; L97.524 Non-pressure chronic ulcer of other part of left foot with necrosis of bone; L97.313 Non-pressure chronic ulcer of right ankle with necrosis of muscle; L97.413 Non-pressure chronic ulcer of right heel and midfoot with necrosis of muscle; L97.512 Non-pressure chronic ulcer of other part of right foot with fat layer exposed; E11.42 Type 2 diabetes mellitus with diabetic polyneuropathy; L03.115 Cellulitis of right lower limb; E11.69 Type 2 diabetes mellitus with other specified complication; M86.271 Subacute osteomyelitis, right ankle and foot; M86.272 Subacute osteomyelitis, left ankle and foot; L97.323 Non-pressure chronic ulcer of left ankle with necrosis of muscle; L84 Corns and callosities; E11.51 Type 2 diabetes mellitus with diabetic peripheral angiopathy without gangrene; E11.22 Type 2 diabetes mellitus with diabetic chronic kidney disease; I12.0 Hypertensive chronic kidney disease with stage 5 chronic kidney disease or end stage renal disease; N18.6 End stage renal disease; Z99.2 Dependence on renal dialysis; I25.10 Atherosclerotic heart disease of native coronary artery without angina pectoris; Z95.1 Presence of aortocoronary bypass graft; Z79.899 Other long term (current) drug therapy; Z88.6 Allergy status to analgesic agent; Z88.0 Allergy status to penicillin; Z88.8 Allergy status to other drugs, medicaments and biological substances; Z89.412 Acquired absence of left great toe | CPT/HCPCS: 11042; 11043; 11044; 11047; A6253; A6402 ==

== ENCOUNTER 2016-10-07 11:21 | Outpatient (CLI) | payer MEDICARE, BC | END 2016-10-07 23:59 | disposition home health service (06) | LOC: WOU 11:21 | PROVIDERS: ATTEND Podiatrist Foot & Ankle Surgery | DX: E11.621 Type 2 diabetes mellitus with foot ulcer (principal); L97.524 Non-pressure chronic ulcer of other part of left foot with necrosis of bone; L97.323 Non-pressure chronic ulcer of left ankle with necrosis of muscle; L97.313 Non-pressure chronic ulcer of right ankle with necrosis of muscle; L97.512 Non-pressure chronic ulcer of other part of right foot with fat layer exposed; E11.622 Type 2 diabetes mellitus with other skin ulcer; E11.69 Type 2 diabetes mellitus with other specified complication; M86.271 Subacute osteomyelitis, right ankle and foot; M86.272 Subacute osteomyelitis, left ankle and foot; E11.22 Type 2 diabetes mellitus with diabetic chronic kidney disease; I12.0 Hypertensive chronic kidney disease with stage 5 chronic kidney disease or end stage renal disease; N18.6 End stage renal disease; Z99.2 Dependence on renal dialysis; Z79.82 Long term (current) use of aspirin; Z79.899 Other long term (current) drug therapy; Z89.412 Acquired absence of left great toe; L03.115 Cellulitis of right lower limb | CPT/HCPCS: 11043; 11044; 11046; A6253; A6402 ==

== ENCOUNTER 2016-10-14 10:55 | Outpatient (CLI) | payer MEDICARE, BC | END 2016-10-14 23:59 | disposition home or self-care (01) | LOC: WOU 10:55 | PROVIDERS: ATTEND Podiatrist Foot & Ankle Surgery | DX: E11.621 Type 2 diabetes mellitus with foot ulcer (principal); L97.313 Non-pressure chronic ulcer of right ankle with necrosis of muscle; L97.524 Non-pressure chronic ulcer of other part of left foot with necrosis of bone; L97.323 Non-pressure chronic ulcer of left ankle with necrosis of muscle; L97.519 Non-pressure chronic ulcer of other part of right foot with unspecified severity; E11.622 Type 2 diabetes mellitus with other skin ulcer; E11.51 Type 2 diabetes mellitus with diabetic peripheral angiopathy without gangrene; L97.512 Non-pressure chronic ulcer of other part of right foot with fat layer exposed; E11.42 Type 2 diabetes mellitus with diabetic polyneuropathy; E11.69 Type 2 diabetes mellitus with other specified complication; M86.271 Subacute osteomyelitis, right ankle and foot; M86.272 Subacute osteomyelitis, left ankle and foot; E11.22 Type 2 diabetes mellitus with diabetic chronic kidney disease; I12.0 Hypertensive chronic kidney disease with stage 5 chronic kidney disease or end stage renal disease; N18.6 End stage renal disease; Z99.2 Dependence on renal dialysis; Z88.1 Allergy status to other antibiotic agents; Z88.0 Allergy status to penicillin; Z79.899 Other long term (current) drug therapy; Z79.82 Long term (current) use of aspirin | CPT/HCPCS: 11043; 11044; 11046; A6253; A6402 ==

== ENCOUNTER 2016-10-21 09:25 | Outpatient (CLI) | payer MEDICARE, BC | END 2016-10-21 23:59 | disposition home health service (06) | LOC: WOU 09:25 | PROVIDERS: ATTEND Podiatrist Foot & Ankle Surgery | DX: E11.622 Type 2 diabetes mellitus with other skin ulcer (principal); L97.323 Non-pressure chronic ulcer of left ankle with necrosis of muscle; L97.313 Non-pressure chronic ulcer of right ankle with necrosis of muscle; E11.51 Type 2 diabetes mellitus with diabetic peripheral angiopathy without gangrene; E11.69 Type 2 diabetes mellitus with other specified complication; M86.271 Subacute osteomyelitis, right ankle and foot; M86.272 Subacute osteomyelitis, left ankle and foot; E11.621 Type 2 diabetes mellitus with foot ulcer; L97.512 Non-pressure chronic ulcer of other part of right foot with fat layer exposed; E11.22 Type 2 diabetes mellitus with diabetic chronic kidney disease; N18.6 End stage renal disease; Z99.2 Dependence on renal dialysis; Z89.412 Acquired absence of left great toe; I25.10 Atherosclerotic heart disease of native coronary artery without angina pectoris; Z95.1 Presence of aortocoronary bypass graft; Z79.82 Long term (current) use of aspirin; Z79.899 Other long term (current) drug therapy; Z88.1 Allergy status to other antibiotic agents; Z88.0 Allergy status to penicillin | CPT/HCPCS: 11043; 11044; 11046; A6253; A6402 ×2 ==